=== PATIENT | female | born 1960 | race Caucasian/White ===

== ENCOUNTER → 2022-05-21 | Outpatient (REF) | payer MEDICARE ==
[~2022-05-21] MED LIST: ACET1TAB55 PO; AMLO1TAB25 PO; ASPI-527 PO; ATOR1TAB19 PO; CALC500T49 PO; CARV25TA PO; COUM2.5T17 PO; COUM2TAB22 PO; CYCL-707 PO; DIPH50CA PO; HYDR50TAB PO; LEVOTAB10 PO; NORC1TAB7 PO; PLAV1TAB2 PO; PROT1TAB2 PO; REQU2TAB3 PO; SING10TA32 PO; TRAM50TA2 PO; VITA100066 PO; XYZA5TAB2 PO
[2022-05-21 20:03] LABS: BACTERIA, URINE LARGE AMOUNT; SQUAMOUS EPITHELIAL CELL URINE SMALL AMOUNT /hpf (SMALL AMT); WBC, URINE 40-50 /hpf (0-3)
[2022-05-21 20:04] LABS: HYALINE CAST, URINE NONE SEEN /lpf (0-1); MUCUS, URINE SMALL AMOUNT (NEGATIVE)
== END ==
LOC: M LAB REF 16:52
PROVIDERS: ATTEND Internal Medicine Nephrology
DX: R30.0 Dysuria (principal)

== ENCOUNTER → 2024-03-30 | Outpatient (REF) | payer MEDICARE ==
[~2024-03-30] MED LIST changes: +CLOP75TA99 PO; +MONT-5 PO; -PLAV1TAB2 PO; -SING10TA32 PO
== END ==
LOC: M LAB REF 17:04
PROVIDERS: ATTEND Nurse Practitioner Family
DX: N39.0 Urinary tract infection, site not specified (principal)